=== PATIENT | male | born 1980 | race Caucasian/White ===

== ENCOUNTER 2024-07-19 11:53 | Emergency (ER) | payer MEDICAID ==
[~2024-07-19] VITALS: Ht 190.5 cm; Wt 129.7 kg
[2024-07-19 12:03] VITALS: BP 158/102; PULSE 99; RESP 20; TEMP 97.3; O2SAT 96
[2024-07-19] MEDS: IBUPROFEN 600 MG TAB PO ONE (12:41)
[2024-07-19] MEDS ORDERED: ACET-2619 PO (15:17)
[2024-07-19 15:46] VITALS: BP 134/60; PULSE 79; RESP 20; TEMP 97.3; O2SAT 98
== END 2024-07-19 15:47 | disposition home or self-care (01) ==
LOC: MED 11:53
DX: S92.352A Displaced fracture of fifth metatarsal bone, left foot, initial encounter for closed fracture (principal); I10 Essential (primary) hypertension; Z79.1 Long term (current) use of non-steroidal anti-inflammatories (NSAID); W18.39XA Other fall on same level, initial encounter; Y93.89 Activity, other specified; Y92.89 Other specified places as the place of occurrence of the external cause; Y99.8 Other external cause status
CPT/HCPCS: 73610; 73630; 99284